=== PATIENT | female | born 1955 | race Caucasian/White ===

== ENCOUNTER → 2017-12-16 | Outpatient (CLI) | payer BC ==
--- NOTE | 2017-12-16 15:15 | BD ---
EXAMINATION TYPE: MG DEXA axial skeleton. DATE OF EXAM: 12/16/2017 COMPARISON: NONE CLINICAL HISTORY: Z78.0 POST MENOPAUSAL W/O HRT Height: 66 Weight: 163.8 FRAX RISK QUESTIONS: Alcohol (3 or more units per day): no Family History (Parent hip fracture): no Glucocorticoids (More than 3mos): no (Ex: prednisone, prednisolone, methylprednisolone, dexamethasone, and hydrocortisone). History of Fracture in Adulthood: no Secondary Osteoporosis: 1. Type 1 Diabetes: no 2. Hyperthyroidism: no 3. Menopause before 45: no 4. Malnutrition: no 5. Chronic liver disease: no Rheumatoid Arthritis: yes Current Tobacco Use: no RISK FACTORS HISTORY OF: Family History of Osteoporosis: no Active: yes Diet low in dairy products/other sources of calcium: no Postmenopausal woman: around age 46 Lost more than 2 inches in height since high school: no MEDICATIONS: Plaquenil, prilosec, celebrex, sangeetha with d, vitamins, flexeril Additional History: EXAM MEASUREMENTS: Bone mineral densitometry was performed using the [employer] System. Bone mineral density as measured about the Lumbar spine is: ----- L1-L4(G/cm2): 1.293 T Score Values are as follows: ----- L2: 0.6 ----- L3: 0.9 ----- L4: 0.8 ----- L1-L4: 0.8 Bone mineral density has: decreased -3.8 % since study of: 12.08.2012 Bone mineral density about the R hip (g/cm2): 0.875 Bone mineral density about the L hip (g/cm2): 0.873 T Score values are as follows: -----R Neck: -1.2 -----L Neck: -1.2 -----R Total: -0.5 -----L Total: -0.6 Bone mineral density has: decreased -2.6 % since study of: 12.08.2012 IMPRESSION: No evidence for osteoporosis or osteopenia at this time. NOTE: T-SCORE=SD OF THE YOUNG ADULT MEAN.
--- NOTE | 2017-12-17 10:42 | MM ---
Reason for exam: screening (asymptomatic). Last mammogram was performed 1 year and 5 months ago. History: Patient is postmenopausal. Excisional biopsy of the left breast. Taking estrogen for 2 years 1 month. Physical Findings: A clinical breast exam by your physician is recommended on an annual basis and results should be correlated with mammographic findings. MG Screening Mammo w CAD Bilateral CC and MLO view(s) were taken. Prior study comparison: July 13, 2016, bilateral MG screening mammo w CAD. April 25, 2015, bilateral MG screening mammo w CAD. The breast tissue is heterogeneously dense. This may lower the sensitivity of mammography. Stable benign calcifications. There is no discrete abnormality. No significant changes when compared with prior studies. ASSESSMENT: Benign, BI-RAD 2 RECOMMENDATION: Routine screening mammogram of both breasts in 1 year.
== END | disposition home or self-care (01) ==
LOC: RADMAMWWP 13:21
PROVIDERS: ATTEND Obstetrics & Gynecology
DX: Z12.31 Encounter for screening mammogram for malignant neoplasm of breast (principal); Z78.0 Asymptomatic menopausal state
CPT/HCPCS: 77067; 77080

== ENCOUNTER → 2018-06-17 | Outpatient (CLI) | payer BC | END | disposition home or self-care (01) | LOC: CPPFTMAIN 11:47 | PROVIDERS: ATTEND Internal Medicine Rheumatology | DX: M33.10 Other dermatomyositis, organ involvement unspecified (principal) | CPT/HCPCS: 94060; 94726; 94729; 94760 ==

== ENCOUNTER → 2018-06-19 | Outpatient (CLI) | payer BC ==
--- NOTE | 2018-06-19 18:38 | ECHOF ---
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 This was a technically good study. The left ventricular size is normal. Left ventricular wall thickness is normal. Overall left vent ricular systolic function is normal with, an EF between 55 - 60 %. The right ventricle is normal in size. Normal LA size by volume 22+/-6 ml/m2. The right atrium is normal in size. There is mild aortic valve sclerosis. There is trace to mild mitral regurgitation. Mild tricuspid regurgitation present. Right ventricular systolic pressure is normal at < 35 mmHg. Trace/mild (physiologic) pulmonic regurgitation. The aortic root size is normal. Normal inferior vena cava with normal inspiratory collapse consistent with estimated right atrial pre ssure of 5 mmHg. There is no pericardial effusion. CONCLUSIONS -------- 1. Sinus rhythm. 2. This was a technically good study. 3. The left ventricular size is normal. 4. Left ventricular wall thickness is normal. 5. Overall left ventricular systolic function is normal with, an EF between 55 - 60 %. 6. The right ventricle is normal in size. 7. Normal LA size by volume 22+/-6 ml/m2. 8. The right atrium is normal in size. 9. There is mild aortic valve sclerosis. 10. There is trace to mild mitral regurgitation. 11. Mild tricuspid regurgitation present. 12. Right ventricular systolic pressure is normal at < 35 mmHg. 13. Trace/mild (physiologic) pulmonic regurgitation. 14. The aortic root size is normal. 15. Normal inferior vena cava with normal inspiratory collapse consistent with estimated right atrial pressure of 5 mmHg. 16. There is no pericardial effusion. [employer] GUIDE: Luz Pruitt RDCS
== END | disposition home or self-care (01) ==
LOC: RADECHMAIN 15:23
PROVIDERS: ATTEND Internal Medicine Rheumatology
DX: I35.8 Other nonrheumatic aortic valve disorders (principal); I37.1 Nonrheumatic pulmonary valve insufficiency
CPT/HCPCS: 93306

== ENCOUNTER → 2019-01-28 | Outpatient (CLI) | payer MEDICARE, BC ==
--- NOTE | 2019-01-29 12:26 | MM ---
Reason for exam: screening (asymptomatic). Last mammogram was performed 1 year and 1 month ago. History: Patient is postmenopausal. Excisional biopsy of the left breast. Taking estrogen for 2 years 1 month. Physical Findings: A clinical breast exam by your physician is recommended on an annual basis and results should be correlated with mammographic findings. MG Screening Mammo w CAD Bilateral CC and MLO view(s) were taken. Prior study comparison: December 16, 2017, bilateral MG screening mammo w CAD. July 13, 2016, bilateral MG screening mammo w CAD. The breast tissue is heterogeneously dense. This may lower the sensitivity of mammography. No significant changes when compared with prior studies. ASSESSMENT: Benign, BI-RAD 2 RECOMMENDATION: Routine screening mammogram of both breasts in 1 year.
== END | disposition home or self-care (01) ==
LOC: RADMAMWWP 14:34
PROVIDERS: ATTEND Family Medicine
DX: Z12.31 Encounter for screening mammogram for malignant neoplasm of breast (principal)
CPT/HCPCS: 77067

== ENCOUNTER 2019-06-13 11:01 | Emergency (ER) | payer MEDICARE, BC ==
[2019-06-13 11:05] VITALS: BP 142/76; PULSE 108; RESP 18; TEMP 99.1
--- NOTE | 2019-06-13 11:14 | ED ---
General Adult HPI - General Chief complaint: Urogenital Stated complaint: UTI Time Seen by Provider: 06/13/19 11:07 Source: patient, RN notes reviewed Mode of arrival: ambulatory Limitations: no limitations - History of Present Illness Initial comments: 63-year-old female presented emergency Department with chief complaint of possible UTI. Patient states that she has some urinary symptoms she doesn't that she's had more frequent urination. She denies any fevers chills, flank pain, abdominal pain, nausea, vomiting, diarrhea constipation. Patient states these are symptoms that she typically gets with her urinary tract infections. Patient offers no other complaints. - Related Data Home Medications Medication Instructions Recorded Confirmed Estrogens, Conjugated [Premarin] 0.3 mg PO DAILY 10/25/14 05/13/16 Hydroxychloroquine Sulfate 400 mg PO DAILY 10/25/14 05/13/16 [Plaquenil] Omeprazole [PriLOSEC] 40 mg PO DAILY 10/25/14 05/13/16 Celecoxib [CeleBREX] 50 mg PO MOTUWETHFR 05/13/16 05/13/16 Previous Rx's Medication Instructions Recorded Ciprofloxacin HCl [Cipro] 500 mg PO Q12HR #14 tablet 05/13/16 Phenazopyridine [Pyridium] 100 mg PO TID #9 tablet 05/13/16 Sulfamethox-Tmp 800-160Mg [Bactrim 1 each PO Q12HR #14 tab 06/13/19 Ds] Allergies Allergy/AdvReac Type Severity Reaction Status Date / Time etanercept [From Enbrel] Allergy Rash/Hives Verified 05/13/16 02:12 meperidine HCl [From Demerol] AdvReac Nausea & Verified 05/13/16 02:12 Vomiting Review of Systems ROS Statement: Those systems with pertinent positive or pertinent negative responses have been documented in the HPI. ROS Other: All systems not noted in ROS Statement are negative. Past Medical History Past Medical History: GERD/Reflux Additional Past Medical History / Comment(s): scleroderma, wound rt monahan, esophageal motility issues, urinary incontinence History of Any Multi-Drug Resistant Organisms: MRSA Date of last positivie culture/infection: 10/25/2014 MDRO Source:: rt monahan wound Past Surgical History: Hysterectomy Additional Past Surgical History / Comment(s): rt "tennis elbow repair" Past Anesthesia/Blood Transfusion Reactions: Postoperative Nausea & Vomiting (PONV) Past Psychological History: No Psychological Hx Reported Smoking Status: Former smoker Past Alcohol Use History: Occasional Past Drug Use History: None Reported General Exam Limitations: no limitations General appearance: alert, in no apparent distress Head exam: Present: atraumatic, normocephalic, normal inspection Respiratory exam: Present: normal lung sounds bilaterally. Absent: respiratory distress, wheezes, rales, rhonchi, stridor Cardiovascular Exam: Present: regular rate (Heart rate 84 on exam), normal rhythm, normal heart sounds. Absent: systolic murmur, diastolic murmur, rubs, gallop, clicks GI/Abdominal exam: Present: soft, normal bowel sounds. Absent: distended, tenderness, guarding, rebound, rigid Back exam: Absent: CVA tenderness (R), CVA tenderness (L) Skin exam: Present: warm, dry, intact Course Vital Signs 06/13/19 11:02 Temperature 99.1 F Pulse Rate 108 H Respiratory 18 Rate Blood Pressure 142/76 O2 Sat by Pulse 99 Oximetry Medical Decision Making - Medical Decision Making 63-year-old female presents emergency Department with chief complaint of UTI. Patient's urinalysis reveals WBC clumps and RBCs. She has no flank pain to consider This Time. Patient We Treated for Cystitis. Patient Was Placed on Bactrim Return Parameters Were Discussed. - Lab Data Lab Results 06/13/19 Range/Units 11:10 Urine Color Yellow Urine Appearance Cloudy H (Clear) Urine pH 5.5 (5.0-8.0) Ur Specific [place] 1.030 (1.001-1.035) Urine Protein 1+ H (Negative) Urine Glucose (UA) Negative (Negative) Urine Ketones Negative (Negative) Urine Blood Trace H (Negative) Urine Nitrite Negative (Negative) Urine Bilirubin Negative (Negative) Urine Urobilinogen 3.0 (<2.0) mg/dL Ur Leukocyte Esterase Large H (Negative) Urine RBC 38 H (0-5) /hpf Urine WBC Clumps Rare H (None) /hpf Ur Squamous Epith Cells 2 (0-4) /hpf Urine Bacteria Rare H (None) /hpf Hyaline Casts 19 H (0-2) /lpf Urine Mucus Few H (None) /hpf Urine Yeast (Budding) Rare H (None) /hpf Disposition Clinical Impression: Urinary tract infection Disposition: HOME SELF-CARE Condition: Stable Instructions (If sedation given, give patient instructions): Urinary Tract Infection in Women (ED) Additional Instructions: Please return to the Emergency Department if symptoms worsen or any other concerns. Prescriptions: Sulfamethox-Tmp 800-160Mg [Bactrim Ds] 1 each PO Q12HR #14 tab Is patient prescribed a controlled substance at d/c from ED?: No Referrals: Jace Muniz MD [Primary Care Provider] - 1-2 days Time of Disposition: 11:40
[2019-06-13 11:35] LABS: Appearance,Urine Cloudy (Clear); Bacteria,Urine Rare /hpf; Bilirubin,Urine Negative (Negative); Blood,Urine Trace (Negative); Budding Yeast,Urine Rare /hpf; Color,Urine Yellow; Glucose,Urine (UA) Negative (Negative); Hyaline Casts,Urine 19 /lpf (0-2); Ketones,Urine Negative (Negative); Leukocyte Esterase,Urine Large (Negative); Mucus,Urine Few /hpf; Nitrite,Urine Negative (Negative); PH, Urine 5.5 (5.0-8.0); Protein,Urine 1+ (Negative); RBC,Urine 38 /hpf (0-5); Squamous Epithelial Cell,Urine 2 /hpf (0-4)
[2019-06-13] MEDS ORDERED: SULFAMETHOX-TMP 800-160MG 1 EACH TAB PO STA (11:40)
== END 2019-06-13 11:57 | disposition home or self-care (01) ==
LOC: EC 11:01
DX: N39.0 Urinary tract infection, site not specified (principal); K21.9 Gastro-esophageal reflux disease without esophagitis; Z79.899 Other long term (current) drug therapy; Z88.5 Allergy status to narcotic agent; Z88.8 Allergy status to other drugs, medicaments and biological substances; Z87.891 Personal history of nicotine dependence
CPT/HCPCS: 81001; 87077; 87086; 87186; 99283

== ENCOUNTER → 2019-06-24 | Outpatient (CLI) | payer MEDICARE, BC ==
--- NOTE | 2019-06-24 15:00 | CT ---
EXAMINATION TYPE: CT sinus wo con DATE OF EXAM: 06/24/2019 COMPARISON: NONE HISTORY: Chronic sinusitis per order. Nasal congestion Per patient. CT DLP: 673.70 mGycm. Automated Exposure Control for Dose Reduction was Utilized. TECHNIQUE: CT scan of the sinuses is performed without contrast, axial images are obtained, coronal r eformatted images are also reviewed. FINDINGS: Mild mucosal thickening inferiorly in bilateral maxillary sinuses. No suspicious opacificat ion or air-fluid levels. The ostiomeatal complex is patent bilaterally on the coronal images. Nasal s eptum is deviated to left of midline. Visualized portion of mastoid air cells show no abnormal opacification. The globes are intact bilate rally. IMPRESSION: Mild chronic maxillary sinus disease. No acute sinusitis.
== END | disposition home or self-care (01) ==
LOC: RADCTMAIN 13:37
PROVIDERS: ATTEND Family Medicine
DX: J32.0 Chronic maxillary sinusitis (principal)
CPT/HCPCS: 70486

== ENCOUNTER → 2020-07-28 | Outpatient (CLI) | payer MEDICARE, BC ==
--- NOTE | 2020-07-28 09:26 | MM ---
Reason for exam: screening (asymptomatic). Last mammogram was performed 1 year and 6 months ago. History: Patient is postmenopausal. Excisional biopsy of the left breast. Taking estrogen for 2 years 1 month. Physical Findings: A clinical breast exam by your physician is recommended on an annual basis and results should be correlated with mammographic findings. MG Screening Mammo w CAD Bilateral CC and MLO view(s) were taken. Prior study comparison: January 28, 2019, bilateral MG screening mammo w CAD. December 16, 2017, bilateral MG screening mammo w CAD. The breast tissue is heterogeneously dense. This may lower the sensitivity of mammography. No significant changes when compared with prior studies. ASSESSMENT: Benign, BI-RAD 2 RECOMMENDATION: Routine screening mammogram of both breasts in 1 year.
== END | disposition home or self-care (01) ==
LOC: RADMAMWWP 07:16
PROVIDERS: ATTEND Family Medicine
DX: Z12.31 Encounter for screening mammogram for malignant neoplasm of breast (principal)
CPT/HCPCS: 77067

== ENCOUNTER 2021-07-12 09:43 | Day surgery (SDC) | payer MEDICARE, BC ==
[2021-07-10 14:27] VITALS: BMI 26.1
[~2021-07-12 09:43] MED LIST: LACTATED RINGERS 1,000 ML IV SCH; LIDOCAINE 1% (10MG/ML) FOR IV START INTRADERMA PRN
[2021-07-12 10:03] VITALS: TEMP 98.9
[2021-07-12] MEDS ORDERED: LIDOCAINE 1% INJ 10MG/ML (20 ML MDV) ONE (10:35)
[2021-07-12] MEDS ORDERED: PROPOFOL 10 MG/ML 20 ML VIAL IV ONE (10:35)
--- NOTE | 2021-07-12 11:05 | P.PCN ---
Date of Procedure: 07/12/21 Procedure(s) Performed: BRIEF HISTORY: Patient is a 75-year-old, pleasant, white female scheduled for an upper endoscopy as a part of evaluation of GERD and long-standing history of Rojas's esophagus. She's currently on omeprazole 20 mg daily and is doing well. PROCEDURE PERFORMED: Esophagogastroduodenoscopy with biopsy. PREOPERATIVE DIAGNOSIS: Rojas's esophagus. IV sedation per anesthesia. PROCEDURE: After informed consent was obtained, the patient was brought into the endoscopy unit. IV sedation was administered by Anesthesia under continuous monitoring. Initially the Olympus GIF-140 video endoscope was inserted into the mouth. Esophagus intubated without any difficulty. It was gradually advanced into the stomach and duodenum and carefully examined. The bulb and the second part of the duodenum appeared normal. The scope at this time was withdrawn to the stomach, adequately insufflated with air, and upon careful examination, mucosa of the antrum, body, cardia and the fundus appeared normal. There was small amount of bleeding for the stomach suggestive of gastroparesis. The scope was then withdrawn into the esophagus. Moderate sessile hernia noted. The GE junction was located at 38 cm from the incisors. There was 2 cm length of Rojas's esophagus extending from 30-40 cm to the incisors and multiple biopsies were done from this area. The rest of the esophagus appeared normal. There were no erosions or ulcerations seen and the patient tolerated the procedure well. IMPRESSION: 1. Long segment Rojas's esophagus extending from 30-40 cm to the incisors status post biopsy. 2. Moderate size hiatal hernia 3. Retained food in the stomach suggestive of gastroparesis. RECOMMENDATIONS: The findings of this examination were discussed with the patient as well as a family. She was advised to follow with the biopsy results. If the biopsy confirms presence of the esophagus with no dysplasia she can have a repeat upper endoscopy in 2-3 years..
[2021-07-12 11:22] VITALS: BP 153/80; PULSE 70; RESP 20
== END 2021-07-12 11:38 | disposition home or self-care (01) ==
LOC: ORWHC2ENDO 09:43
PROVIDERS: ATTEND Internal Medicine Gastroenterology
DX: K22.70 Barrett's esophagus without dysplasia (principal); K44.9 Diaphragmatic hernia without obstruction or gangrene; Z98.890 Other specified postprocedural states
CPT/HCPCS: 43239; J2001; J2704

== ENCOUNTER → 2021-12-28 | Outpatient (CLI) | payer MEDICARE ==
--- NOTE | 2021-12-29 14:29 | MM ---
Reason for exam: screening (asymptomatic). Last mammogram was performed 1 year and 5 months ago. History: Patient is postmenopausal. Family history of breast cancer in sister at age 69. Excisional biopsy of the left breast. Taking estrogen for 2 years 1 month. Physical Findings: A clinical breast exam by your physician is recommended on an annual basis and results should be correlated with mammographic findings. MG 3D Screening Mammo W/Cad Bilateral CC and MLO view(s) were taken. Prior study comparison: July 28, 2020, bilateral MG screening mammo w CAD. January 28, 2019, bilateral MG screening mammo w CAD. The breast tissue is heterogeneously dense. This may lower the sensitivity of mammography. Finding: There are indeterminate calcifications in the subareolar position of the right breast. New finding since July 28, 2020 and January 28, 2019. ASSESSMENT: Incomplete: need additional imaging evaluation, BI-RAD 0 RECOMMENDATION: Special view mammogram of the right breast. [facility] will attempt to contact patient to return for supplemental views.
== END | disposition home or self-care (01) ==
LOC: RADMAMWWP 07:25
PROVIDERS: ATTEND Family Medicine
DX: Z12.31 Encounter for screening mammogram for malignant neoplasm of breast (principal); Z78.0 Asymptomatic menopausal state; Z80.3 Family history of malignant neoplasm of breast
CPT/HCPCS: 77063; 77067

== ENCOUNTER → 2022-01-02 | Outpatient (CLI) | payer MEDICARE, BC ==
--- NOTE | 2022-01-03 05:41 | MR ---
EXAMINATION TYPE: MR ankle RT wo con DATE OF EXAM: 01/02/2022 COMPARISON: None HISTORY: Right ankle pain, achilles tendon pain, and swelling for 2 months Multiplanar multiecho imaging of the right ankle without contrast. Ankle mortise is anatomic. The collateral ligaments appear intact. Achilles tendon is intact. The med ial and lateral flexor tendons of the ankle appear intact. There is a mild ankle joint effusion. I se e no bony destructive process. No evidence of a fracture. Joint spaces are fairly normal. IMPRESSION: There is mild ankle joint effusion. This could relate to some mild synovitis. No evidence of ligament or tendon tear. No fracture.
== END | disposition home or self-care (01) ==
LOC: RADMRIMAIN 12:57
PROVIDERS: ATTEND Orthopaedic Surgery
DX: M25.471 Effusion, right ankle (principal)

== ENCOUNTER → 2022-01-08 | Outpatient (CLI) | payer MEDICARE ==
--- NOTE | 2022-01-08 09:47 | MM ---
Reason for exam: additional evaluation requested from abnormal screening. Last mammogram was performed less than 1 month ago. History: Patient is postmenopausal. Family history of breast cancer in sister at age 69. Excisional biopsy of the left breast. Took estrogen for 2 years 1 month. Physical Findings: A clinical breast exam by your physician is recommended on an annual basis and results should be correlated with mammographic findings. MG 3D Work Up W/Cad RT CC, MLO, and LM view(s) were taken of the right breast. Prior study comparison: December 28, 2021, bilateral MG 3d screening mammo w/cad. July 28, 2020, bilateral MG screening mammo w CAD. The breast tissue is heterogeneously dense. This may lower the sensitivity of mammography. Benign calcifications in the right breast. Results were given to the patient verbally at the time of the exam. ASSESSMENT: Benign, BI-RAD 2 RECOMMENDATION: Return to routine screening mammogram schedule for both breasts.
== END | disposition home or self-care (01) ==
LOC: RADMAMWWP 08:03
PROVIDERS: ATTEND Family Medicine
DX: R92.1 Mammographic calcification found on diagnostic imaging of breast (principal); Z78.0 Asymptomatic menopausal state; Z80.3 Family history of malignant neoplasm of breast
CPT/HCPCS: 77065; G0279; 77061

== ENCOUNTER → 2022-07-06 | Outpatient (CLI) | payer MEDICARE, BC ==
--- NOTE | 2022-07-06 15:31 | BD ---
EXAMINATION TYPE: Axial Bone Density DATE OF EXAM: 07/06/2022 COMPARISON: NONE CLINICAL HISTORY: 66 years year old Female. ICD-10 CODE: M89.9 bone disorder Height: 66.5 Weight: 169.8 FRAX RISK QUESTIONS: Alcohol (3 or more units per day): NO Family History (Parent hip fracture): NO Glucocorticoids (More than 3mos): NO History of Fracture in Adulthood: NO Secondary Osteoporosis: 1. Type 1 Diabetes: NO 2. Hyperthyroidism: NO 3. Menopause before 45: NO 4. Malnutrition: NO 5. Chronic liver disease: NO Rheumatoid Arthritis: NO Current Tobacco Use: NO RISK FACTORS HISTORY OF: Hip Fracture (Right/Left): NO Spine Fracture: NO History of Wrist Fracture: NO Surgery to Spine/Hip(right/left)/Wrist (right/left): NO Family History of Osteoporosis: NO Active: YES Diet low in dairy products/other sources of calcium: NO Postmenopausal woman: YES Take estrogen and/or progesterone medications: NO Lost more than 2 inches in height since high school: NO Frequent falls: NO Poor Health: NO Hyperparathyroidism: NO Adrenal Insufficiency: NO MEDICATIONS: Prednisone or other steroids: NO Thyroid Medications: NO Osteoporosis Medications: NO Additional Medications: CALCIUM, REFLUX MEDS, CELEBREX, MULTI VIT, B12, BIOTIN, EXAM MEASUREMENTS: Bone mineral densitometry was performed using the [employer] System. Bone mineral density as measured about the Lumbar spine is: ----- L1-L4(G/cm2): 1.139 T Score Values are as follows: ----- L1: -0.5 ----- L2: -1.0 ----- L3: 0.6 ----- L4: -0.7 ----- L1-L4: -0.3 Bone mineral density has: DECREASED -10.4 % since study of: 12/16/2017 Bone mineral density about the R hip (g/cm2): 0.832 Bone mineral density about the L hip (g/cm2): 0.828 T Score values are as follows: -----R Neck: -1.5 -----L Neck: -1.5 -----R Total: -0.8 -----L Total: -1.3 Bone mineral density has: DECREASED -6.0 % since study of: 12/16/2017 FRAX%s: The graph provided illustrates a 9.7% chance for a major osteoporotic fx and a 1.3% chance fo r the hips probability for fx in 10 years time. IMPRESSION: Osteopenia (T Score between -2.5 and -1). There is slightly increased risk of fracture and the patient may be considered for treatment. Re-Screen 2-5 years. NOTE: T-SCORE=SD OF THE YOUNG ADULT MEAN.
== END | disposition home or self-care (01) ==
LOC: RADBDWWP 14:38
PROVIDERS: ATTEND Family Medicine
DX: M85.89 Other specified disorders of bone density and structure, multiple sites (principal); Z79.52 Long term (current) use of systemic steroids
CPT/HCPCS: 77080

== ENCOUNTER → 2023-05-06 | Outpatient (CLI) | payer MEDICARE ==
--- NOTE | 2023-05-08 14:51 | MM ---
Reason for Exam: Screening (asymptomatic). Last mammogram was performed 1 year(s) and 4 month(s) ago. Patient History: Menarche at age 12. First Full-Term at age 20. Left ovary removed at age 46. Right ovary removed at age 46. Hysterectomy at age 46. Postmenopausal. Estrogen for 2 years, 1 month, until age 56. Excisional Biopsy on the Left side. Sister had breast cancer, age 69. Risk Values: Crista 5 year model risk: 3.5%. NCI Lifetime model risk: 10.7%. Prior Study Comparison: 07/28/2020 Bilateral Screening Mammogram, [facility]. 12/28/2021 Bilateral Screening Mammogram, [facility]. 01/08/2022 Right Diagnostic Mammogram, [facility]. Tissue Density: The breast tissue is heterogeneously dense. This may lower the sensitivity of mammography. Findings: Analyzed By CAD. No significant changes when compared with prior studies. Chronic nodularity in the left breast is stable. Overall Assessment: Benign, BI-RAD 2 Management: Screening Mammogram of both breasts in 1 year. A clinical breast exam by your physician is recommended on an annual basis and results should be correlated with mammographic findings. Electronically signed and approved by: Harsha Jackson M.D. Radiologis
== END | disposition home or self-care (01) ==
LOC: RADMAMWWP 14:20
PROVIDERS: ATTEND Family Medicine
DX: Z12.31 Encounter for screening mammogram for malignant neoplasm of breast (principal); Z78.0 Asymptomatic menopausal state; Z80.3 Family history of malignant neoplasm of breast
CPT/HCPCS: 77067

== ENCOUNTER → 2023-07-04 | Outpatient (CLI) | payer MEDICARE ==
--- NOTE | 2023-07-04 09:08 | USB ---
Reason for Exam: Clinical finding. Patient History: Menarche at age 12. First Full-Term at age 20. Left ovary removed at age 46. Right ovary removed at age 46. Hysterectomy at age 46. Postmenopausal. Estrogen for 2 years, 1 month, until age 56. Excisional Biopsy on the Left side. Sister had breast cancer, age 69. Risk Values: Crista 5 year model risk: 3.5%. NCI Lifetime model risk: 10.7%. Technique: Method: Targeted. Prior Study Comparison: 12/28/2021 Bilateral Screening Mammogram, [facility]. 01/08/2022 Right Diagnostic Mammogram, [facility]. 05/06/2023 Bilateral MG screening mammo w CAD, [facility]. Findings: The upper section of the breast of the right breast and the axilla of the right breast were scanned. Technique utilized:US breast limited RT Image; Ultrasound imaging of: Area of concern. Normal morphologic lymph nodes in the right breast lateral collateral summation of normal. No evidence for organizing fluid collection or mass. Overall Assessment: Benign, BI-RAD 2 Management: Screening Mammogram of both breasts in 1 year. A clinical breast exam by your physician is recommended on an annual basis and results should be correlated with mammographic findings. This exam should not preclude additional follow-up of suspicious palpable abnormalities. Results were given to the patient verbally at the time of exam. Electronically signed and approved by: Jose White DO
--- NOTE | 2023-07-04 09:08 | MM ---
Reason for Exam: Clinical finding. Last screening mammogram was performed 2 month(s) ago. Indicated Problems: Lump or thickening of the right side for 1 Week(s). Patient History: Menarche at age 12. First Full-Term at age 20. Left ovary removed at age 46. Right ovary removed at age 46. Hysterectomy at age 46. Postmenopausal. Estrogen for 2 years, 1 month, until age 56. Excisional Biopsy on the Left side. Sister had breast cancer, age 69. Risk Values: Crista 5 year model risk: 3.5%. NCI Lifetime model risk: 10.7%. Prior Study Comparison: 12/28/2021 Bilateral Screening Mammogram, [facility]. 01/08/2022 Right Diagnostic Mammogram, [facility]. 05/06/2023 Bilateral MG screening mammo w CAD, [facility]. Tissue Density: Right: The breast tissue is heterogeneously dense. This may lower the sensitivity of mammography. Findings: Analyzed By CAD. Normal morphologic lymph nodes in the right breast lateral collateral summation of normal. No new suspicious masses, calcifications or distortions. No finding on mammography to correlate patient's palpable marker. No new suspicious masses, calcifications or distortions. Overall Assessment: Incomplete: need additional imaging evaluation, BI-RAD 0 Management: Diagnostic Breast Ultrasound of the right breast. Results were given to the patient verbally at the time of exam. Patient should continue monthly self-breast exams. A clinical breast exam by your physician is recommended on an annual basis. This exam should not preclude additional follow-up of suspicious palpable abnormalities. Note on Crista scores and lifetime risk: 1. A Crista score greater than 3% is considered moderate risk. If this is the case, consider specialist referral to assess eligibility for a risk reducing agent. 2. If overall lifetime risk for the development of breast cancer is 20% or higher, the patient may qualify for future screening with alternating mammogram and breast MRI. Electronically signed and approved by: Jose White DO
== END | disposition home or self-care (01) ==
LOC: RADMAMWWP 08:12
PROVIDERS: ATTEND Family Medicine
DX: N63.10 Unspecified lump in the right breast, unspecified quadrant (principal); Z78.0 Asymptomatic menopausal state; Z80.3 Family history of malignant neoplasm of breast
CPT/HCPCS: 77065; 76642; G0279; 77061

== ENCOUNTER 2023-11-27 08:02 | Day surgery (SDC) | payer MEDICARE ==
[2023-11-25 12:19] VITALS: BMI 24.3
[2023-11-27] MEDS: LACTATED RINGERS 1,000 ML IV SCH (08:42)
[2023-11-27 09:00] VITALS: TEMP 98.5
[2023-11-27] MEDS ORDERED: LIDOCAINE 1% INJ 10MG/ML (20 ML MDV) ONE (09:18)
[2023-11-27] MEDS ORDERED: PROPOFOL 10 MG/ML 20 ML VIAL IV ONE (09:18)
--- NOTE | 2023-11-27 09:50 | P.PCN ---
Date of Procedure: 11/27/23 Procedure(s) Performed: Brief history: Patient is a pleasant 68-year-old white female scheduled for an elective upper endoscopy as well as colonoscopy as a part of evaluation of GERD/Rojas's esophagus and screening for colon cancer Procedure performed: Esophagogastroduodenoscopy with biopsy Colonoscopy with snare polypectomy. Preoperative diagnosis: GERD/Rojas's esophagus Screening for colon cancer Anesthesia: MAC Procedure: After informed consent was obtained from the patient was brought into the endoscopy unit and IV sedation was administered by anesthesia under continuous monitoring. Initially upper endoscopy was done. The Olympus GF 160 video endoscope was inserted inserted into the mouth and esophagus intubated without any difficulty and was gradually advanced into the stomach and duodenum and carefully examined. The bulb and second part of the duodenum appeared normal. The scope was then withdrawn into the stomach adequately insufflated with air and upon careful examination the antrum and body, cardia and fundus appeared normal. The scope was then withdrawn into the esophagus. Small hiatal hernia noted. The GE junction was located at 35 cm to the incisors. There was a long segment of Rojas's esophagus extending from 32-35 cm from incisors and multiple biopsies were done from this area. Rest of the esophagus appeared normal. Patient tolerated the procedure well. At this time the patient continued to remain sedation. Initial digital rectal examination was normal. Olympus CF 160 video colonoscope was then inserted into the rectum and gradually advanced to the cecum without any difficulty. Careful examination was performed as the scope was gradually being withdrawn. The prep was poor. The cecum had a 1 cm flat polyp that was removed by cold snare polypectomy. Prep was poor and several areas of the colon. Mucosa of the, ascending colon, transverse colon, descending colon, sigmoid colon and rectum appeared normal. Scattered left sided diverticulosis. Retroflexion was performed in the rectum and no lesions were noted. Patient tolerated the procedure well. Impression: 1. Upper endoscopy revealed small hiatal hernia and long segment Rojas's esophagus extending from 32-35 to the medicine the incisors status post multiple biopsies 2. Colonoscopy revealed 1 cm flat cecal polyp status post polypectomy and extensive left sided diverticulosis/poor prep Recommendations: Findings of this examination were discussed with the patient as well asof family. She was advised to follow with the biopsy results. If the biopsy does not show any evidence of dysplasia, she can have a repeat upper endoscopy and colonoscopy in 3 years. In the meantime she'll continue with omeprazole 20 mg daily and follow antireflux measures.
[2023-11-27 10:21] VITALS: BP 136/60; PULSE 66; RESP 16
== END 2023-11-27 10:26 | disposition home or self-care (01) ==
LOC: ORWHC2ENDO 08:02
PROVIDERS: ATTEND Internal Medicine Gastroenterology
DX: Z12.11 Encounter for screening for malignant neoplasm of colon (principal); K21.9 Gastro-esophageal reflux disease without esophagitis; K31.A0 Gastric intestinal metaplasia, unspecified; K44.9 Diaphragmatic hernia without obstruction or gangrene; K57.30 Diverticulosis of large intestine without perforation or abscess without bleeding; D12.0 Benign neoplasm of cecum
CPT/HCPCS: 88305; 45385; 43239; J2001; J2704

== ENCOUNTER → 2024-07-07 | Outpatient (CLI) | payer MEDICARE ==
--- NOTE | 2024-07-07 12:17 | MM ---
Reason for Exam: Screening (asymptomatic). Last mammogram was performed 1 year(s) and 2 month(s) ago. Patient History: Menarche at age 12. First Full-Term at age 20. Left ovary removed at age 46. Right ovary removed at age 46. Hysterectomy at age 46. Postmenopausal. Estrogen for 2 years, 1 month, until age 56. Excisional Biopsy on the Left side. Sister had breast cancer, age 69. Risk Values: Crista 5 year model risk: 3.6%. NCI Lifetime model risk: 10.2%. Prior Study Comparison: 07/13/2016 Bilateral Screening Mammogram, [facility]. 12/16/2017 Bilateral Screening Mammogram, [facility]. 01/28/2019 Bilateral Screening Mammogram, [facility]. 07/28/2020 Bilateral Screening Mammogram, [facility]. 12/28/2021 Bilateral Screening Mammogram, [facility]. 01/08/2022 Right Diagnostic Mammogram, [facility]. 05/06/2023 Bilateral MG screening mammo w CAD, [facility]. 07/04/2023 Right MG 3D diag mammo w/cad RT, [facility]. Tissue Density: The breasts are heterogeneously dense, which may obscure small masses. Findings: Analyzed By CAD. Right breast: There is no suspicious group of microcalcifications or new suspicious mass. Left breast: There is no suspicious group of microcalcifications or new suspicious mass. Overall Assessment: Negative, BI-RAD 1 Management: Screening Mammogram of both breasts in [address] [facility] will attempt to contact patient to return for supplemental views and ultrasound if indicated. Patient should continue monthly self-breast exams. A clinical breast exam by your physician is recommended on an annual basis. This exam should not preclude additional follow-up of suspicious palpable abnormalities. Note on Crista scores and lifetime risk: 1. A Crista score greater than 3% is considered moderate risk. If this is the case, consider specialist referral to assess eligibility for a risk reducing agent. 2. If overall lifetime risk for the development of breast cancer is 20% or higher, the patient may qualify for future screening with alternating mammogram and breast MRI. [facility], , 07/07/2024 12:14 PM. Electronically signed and approved by: Jose White DO
--- NOTE | 2024-07-07 17:40 | BD ---
EXAMINATION TYPE: Axial Bone Density DATE OF EXAM: 07/07/2024 CLINICAL HISTORY: 68 years old Female. ICD-10 CODE: M89.9 disorder of bone, unspec , Z78.0 Height: 65.5" Weight: 148lbs FRAX RISK QUESTIONS: Alcohol (3 or more units per day): No Family History (Parent hip fracture): No Glucocorticoids (More than 3mos): No (Ex: prednisone, prednisolone, methylprednisolone, dexamethasone, and hydrocortisone). History of Fracture in Adulthood: No Secondary Osteoporosis: 1. Type 1 Diabetes: No 2. Hyperthyroidism: No 3. Menopause before 45: No 4. Malnutrition: No 5. Chronic liver disease: No Rheumatoid Arthritis: No Current Tobacco Use: No RISK FACTORS HISTORY OF: Hip Fracture (Right/Left): No Spine Fracture: No History of Wrist Fracture: No Surgery to Spine/Hip(right/left)/Wrist (right/left): No MEDICATIONS: Thyroid Medications: No Osteoporosis Medications: No EXAM MEASUREMENTS: Bone mineral densitometry was performed using the [employer]. Bone mineral density as measured about the Lumbar spine is: ----- L1-L4(G/cm2): 1.106 T Score Values are as follows: ----- L1: -0.6 ----- L2: -0.5 ----- L3: 0.1 ----- L4: -1.4 ----- L1-L4: -0.6 Z Score Values are as follows: ----- L1: 1.0 ----- L2: 1.1 ----- L3: 1.7 ----- L4: 0.2 ----- L1-L4: 1.0 Bone mineral density has: decreased -2.9% since study of: 07/06/2022 Bone mineral density about the R hip (g/cm2): 0.918 Bone mineral density about the L hip (g/cm2): 0.810 T Score values are as follows: -----R Neck: -1.1 -----L Neck: -1.4 -----R Total: -0.7 -----L Total: -1.6 Z Score values are as follows: -----R Neck: 0.6 -----L Neck: 0.3 -----R Total: 0.7 -----L Total: -0.1 Bone mineral density has: decreased -1.7% since study of: 07/06/2022 FRAX%s: The graph provided illustrates a 9.8% chance for a major osteoporotic fx and a 1.4% chance fo r the hips probability for fx in 10 years time. IMPRESSION: Osteopenia (T Score between -2.5 and -1). There is slightly increased risk of fracture and the patient may be considered for treatment. Re-Screen 2-5 years. NOTE: T-SCORE=SD OF THE YOUNG ADULT MEAN. [facility], , 07/07/2024 5:37 PM
== END | disposition home or self-care (01) ==
LOC: RADMAMWWP 09:57
PROVIDERS: ATTEND Family Medicine
CPT/HCPCS: 77067; 77080